=== PATIENT | male | born 2000 | race Caucasian/White ===

== ENCOUNTER 2024-06-30 12:00 | Day surgery (SDC) | payer BC ==
[2024-06-30] MEDS ORDERED: Xylocaine-Mpf 2% 5 Ml Vial IJ ONE (12:01)
[2024-06-30] MEDS ORDERED: DIPRIVAN 200 MG/20 ML IV ONE ×2 (13:46→13:55)
--- NOTE | 2024-06-30 14:30 | XRAY ---
Indication: Bilateral L4-S1 MBB. Intraoperative fluoroscopy provided for 14 second. Single digital spot image submitted for interpretation demonstrates posterior needle tips projecting over the expected left and right L4-S1 nerve roots. Correlate with intraoperative findings/report.
[2024-06-30] MEDS ORDERED: Lactated Ringers 1,000 ML IV ONE (15:02)
--- NOTE | 2024-06-30 15:04 | XRAY ---
14 seconds of fluoroscopy was used in surgery for a bilateral L4-S1 MBB.
== END 2024-06-30 14:27 | disposition home or self-care (01) ==
LOC: SDC-PAIN 12:00
PROVIDERS: ATTEND Psychiatry & Neurology Pain Medicine
DX: M47.816 Spondylosis without myelopathy or radiculopathy, lumbar region (principal)
CPT/HCPCS: 64493; 64494; 72020; 77002; J2704

== ENCOUNTER 2024-07-21 11:58 | Day surgery (SDC) | payer BC ==
[2024-07-21] MEDS ORDERED: BUPIVACAINE 0.5% VIAL IJ ONE (11:59)
[2024-07-21] MEDS ORDERED: DIPRIVAN 200 MG/20 ML IV ONE (14:14)
[2024-07-21] MEDS ORDERED: Lactated Ringers 1,000 ML IV ONE (14:35)
--- NOTE | 2024-07-21 16:35 | XRAY ---
Indication: Bilateral L4-S1 MBB. Intraoperative fluoroscopy provided for 22 seconds. Single digital spot image submitted for interpretation demonstrates posterior needle tips projecting over the expected left and right L4-S1 nerve roots. Correlate with intraoperative findings/report.
--- NOTE | 2024-07-21 20:09 | XRAY ---
22 seconds of fluoroscopy was used in surgery for a bilateral L4-S1 MBB.
== END 2024-07-21 14:45 ==
LOC: SDC-PAIN 11:58
PROVIDERS: ATTEND Psychiatry & Neurology Pain Medicine
DX: M47.816 Spondylosis without myelopathy or radiculopathy, lumbar region (principal)
CPT/HCPCS: 64493; 64494; 72020; 77002; J2704

== ENCOUNTER 2024-08-12 14:34 | Day surgery (SDC) | payer BC ==
[2024-08-12] MEDS ORDERED: LIDOCAINE HCL 1% 50 MG/5 ML VL PF IJ ONE (14:35)
[2024-08-12] MEDS ORDERED: BUPIVACAINE 0.5% VIAL IJ ONE (14:35)
[2024-08-12] MEDS ORDERED: Depo-Medrol 40 MG/ML IM ONE (14:35)
[2024-08-12] MEDS ORDERED: Lactated Ringers 1,000 ML IV ONE (16:39)
[2024-08-12] MEDS ORDERED: DIPRIVAN 200 MG/20 ML IV ONE ×2 (16:40→16:49)
--- NOTE | 2024-08-12 20:36 | XRAY ---
Indication: Right L4-S1 RFA. Intraoperative fluoroscopy provided for 35 seconds. 4 digital spot image submitted for interpretation demonstrates posterior needle tips projecting over the expected right L4-S1 nerve roots. Correlate with intraoperative findings/report.
--- NOTE | 2024-08-16 12:49 | XRAY ---
35 seconds of fluoroscopy was used in surgery for a right L4-S1 RFA.
== END 2024-08-12 17:20 | disposition home or self-care (01) ==
LOC: SDC-PAIN 14:34
PROVIDERS: ATTEND Psychiatry & Neurology Pain Medicine
DX: M47.816 Spondylosis without myelopathy or radiculopathy, lumbar region (principal); M47.817 Spondylosis without myelopathy or radiculopathy, lumbosacral region
CPT/HCPCS: 64635; 64636; 72100; 77002; J2001; J2704

== ENCOUNTER 2024-08-25 10:55 | Day surgery (SDC) | payer BC ==
[2024-08-25] MEDS ORDERED: BUPIVACAINE 0.5% VIAL IJ ONE (10:56)
[2024-08-25] MEDS ORDERED: LIDOCAINE HCL 1% AMPUL 5 ML IJ ONE (10:56)
[2024-08-25] MEDS ORDERED: Depo-Medrol 40 MG/ML IM ONE (10:56)
[2024-08-25] MEDS ORDERED: Lactated Ringers 1,000 ML IV ONE (12:43)
[2024-08-25] MEDS ORDERED: DIPRIVAN 200 MG/20 ML IV ONE ×2 (12:46→12:53)
--- NOTE | 2024-08-25 14:08 | XRAY ---
Indication: Left L4-S1 RFA. Intraoperative fluoroscopy provided for 21 seconds. 4 digital spot image submitted for interpretation demonstrates posterior needle tips projecting over the expected left L4-S1 nerve roots. Correlate with intraoperative findings/report.
--- NOTE | 2024-08-25 14:40 | XRAY ---
21 seconds of fluoroscopy was used in surgery for a left L4-S1 RFA.
== END 2024-08-25 13:19 | disposition home or self-care (01) ==
LOC: SDC-PAIN 10:55
PROVIDERS: ATTEND Psychiatry & Neurology Pain Medicine
DX: M47.816 Spondylosis without myelopathy or radiculopathy, lumbar region (principal)
CPT/HCPCS: 64635; 64636; 72100; 77002; J2704